=== PATIENT | female | born 1955 | race Caucasian/White ===

== ENCOUNTER 2022-06-02 00:48 | Emergency (ER) | payer MEDICARE, OTHER ==
[~2022-06-02] VITALS: Ht 162.6 cm; Wt 102.1 kg
--- NOTE | 2022-06-02 00:55 | NUR ---
[id number]. RUQ ABD PAIN X TODAY +N/-V. PT A/OX4. TOLERATING R/A WELL WITH NO SOB; RESP EVEN AND NON LABORED. AMBULATORY WITTH ASSIST AND CANE. SAFETY MEASURES IN PLACE.
[2022-06-02] MEDS ORDERED: MORPHINE SULFATE INJ 4 MG/ML DISP.SYRIN ONE (01:04)
--- NOTE | 2022-06-02 01:05 | NUR ---
RAC #[id number] S/L BLOOD COLLECTED AND SENT TO LAB
[2022-06-02] MEDS: MORPHINE SULFATE INJ 2 MG/ML DISP.SYRIN IV ONE (01:08)
[2022-06-02 01:10] LABS: BASOPHILS % (AUTO) 0.3 % (0.0-2.0); EOSINOPHILS % (AUTO) 2.9 % (0.0-6.0); HEMATOCRIT 43 % (33-45); HEMOGLOBIN 13.9 g/dL (11.5-14.8); LYMPHOCYTES # (AUTO) 1.3 K/uL (0.8-4.8); LYMPHOCYTES % (AUTO) 15.7 % (20.0-44.0); MEAN CORPUSCULAR HGB CONC 33 g/dl (31.0-36.0); MEAN CORPUSCULAR VOLUME 90 fL (82-100); MONOCYTES # (AUTO) 0.5 K/uL (0.1-1.30); MONOCYTES % (AUTO) 6.5 % (2.0-12.0); NEUTROPHILS % (AUTO) 74.6 % (43.0-81.0); PLATELET COUNT (AUTO) 134 K/uL (150-450); RED BLOOD CELL COUNT(AUTO) 4.77 MIL/uL (4.0-5.2)
--- NOTE | 2022-06-02 01:15 | NUR ---
US TECH AT PT'S BEDSIDE
[2022-06-02 01:22] LABS: CALCIUM, SERUM 8.4 mg/dL (8.5-10.1); CREATININE 0.9 mg/dL (0.6-1.3); POTASSIUM 3.5 mmol/L (3.5-5.1)
[2022-06-02 01:36] LABS: ALBUMIN 3.1 g/dL (3.4-5.0); BILIRUBIN,DIRECT 0.1 mg/dL (0.0-0.2); BILIRUBIN,TOTAL 0.4 mg/dL (0.2-1.0); TOTAL PROTEIN, SERUM 6.6 g/dL (6.4-8.2)
--- NOTE | 2022-06-02 02:03 | NUR ---
URINE COLLECTED AND SENT TO LAB
[2022-06-02] MEDS ORDERED: OXYC-128 PO ×2 (02:46→03:14)
[2022-06-02] MEDS ORDERED: ONDA4TAB11 PO ×2 (02:46→03:14)
--- NOTE | 2022-06-02 03:02 | NUR ---
Patient discharged to home in stable condition. Written and verbal after care instructions given. Patient verbalizes understanding of instruction.IV removed. Catheter intact and site benign. Pressure and 4x4 applied to site. No bleeding noted. Pt ambulatory with a steady gait
[2022-06-02 03:06] LABS: BILIRUBIN,URINE NEGATIVE (NEGATIVE); COLOR,URINE YELLOW (YELLOW); LEUKOCYTE ESTERASE ,URINE NEGATIVE (NEGATIVE); NITRITE, URINE NEGATIVE (NEGATIVE); PH,URINE 5.5 (5.0-8.0); PROTEIN,URINE >=300 mg/dl (NEGATIVE); UGLUCOSE NEGATIVE (NEGATIVE); UROBILINOGEN,URINE 0.2 EU/dL (0.2)
[2022-06-02 03:25] LABS: BACTERIA,URINE Few /HPF (None Seen); SQUAMOUS EPITHELIAL CELL,UR Moderate /HPF (None Seen)
[2022-06-02 03:26] LABS: MUCUS,URINE Moderate /LPF (None Seen)
[2022-06-02 04:12] VITALS: BP 159/97
== END 2022-06-02 03:02 | disposition home or self-care (01) ==
LOC: ER 00:51
DX: K82.8 Other specified diseases of gallbladder (principal); I48.91 Unspecified atrial fibrillation
CPT/HCPCS: 99284; 96374; 76705; 85025; 80048; 87086; 83690; 80076; 81001; 36415; J2270